=== PATIENT | male | born 1990 | race African-American/Black ===

== ENCOUNTER 2021-06-02 02:51 | Emergency (ER) | payer SELFPAY ==
[~2021-06-02] VITALS: Ht 175.3 cm; Wt 85.3 kg
--- NOTE | 2021-06-02 02:51 | NUR ---
PT BIB [facility], PREBOOK. TAKEN TO CHAIR
[2021-06-02 02:57] VITALS: BP 142/89
--- NOTE | 2021-06-02 03:12 | NUR ---
Dr. Rouse examining patient.
[2021-06-02] MEDS ORDERED: amLODIPine 5 MG TAB PO ONE (03:15)
[2021-06-02 03:38] VITALS: BP 142/89
--- NOTE | 2021-06-02 03:40 | NUR ---
PATIENT BIB [facility]. PATIENT EXAMINED BY DR. VENTURA. PATIENT MEDICALLY CLEARED AND RELEASED IN CUSTODY IN STABLE CONDITION. ORIGINAL PRE-BOOK FORM GIVEN TO OFFICER ARA.
== END 2021-06-02 03:40 ==
LOC: MED 02:51
DX: F10.129 Alcohol abuse with intoxication, unspecified (principal); I10 Essential (primary) hypertension; Z02.89 Encounter for other administrative examinations; V89.2XXA Person injured in unspecified motor-vehicle accident, traffic, initial encounter; Y93.89 Activity, other specified; Y92.89 Other specified places as the place of occurrence of the external cause; Y99.8 Other external cause status
CPT/HCPCS: 99283